=== PATIENT | female | born 1975 | race Caucasian/White ===

== ENCOUNTER 2023-08-31 04:40 | Emergency (ER) | payer MEDICAID ==
[~2023-08-31] VITALS: Ht 162.6 cm; Wt 56.2 kg
[2023-08-31 04:43] VITALS: BP 167/118; PULSE 68; RESP 16; TEMP 97.4; O2SAT 97
[2023-08-31 05:20] VITALS: BP 167/118; PULSE 68; RESP 16; TEMP 97.4; O2SAT 97
[2023-08-31] MEDS ORDERED: NYST100022 PO (05:21)
== END 2023-08-31 05:20 | disposition home or self-care (01) ==
LOC: MED 04:40
DX: B37.0 Candidal stomatitis (principal); I10 Essential (primary) hypertension; Z79.899 Other long term (current) drug therapy
CPT/HCPCS: 99283